=== PATIENT | male | born 2005 | race Caucasian/White ===

== ENCOUNTER 2024-05-20 13:29 | Emergency (ER) | payer BC, SELFPAY ==
[2024-05-20 13:31] VITALS: BP 114/57; PULSE 122; RESP 16; TEMP 37.2; O2SAT 100; BMI 17.0
--- NOTE | 2024-05-20 14:06 | RAD_ITS ---
STUDY: X-RAY CHEST REASON FOR EXAM: Male, 19 years old. Cough. Generalized illness. TECHNIQUE: Single AP portable view of the chest. COMPARISON: None. FINDINGS: Hyperinflation. The lungs are clear and expanded. There is no demonstrated pleural abnormality. Normal size heart. Normal mediastinum and olya. Normal visualized pulmonary arteries. Normal visualized aortic arch and descending thoracic aorta. Normal visualized thoracic spine. Normal visualized ribs, clavicles, and shoulders. There is no demonstrated abnormality of the visualized soft tissue structures of the upper abdomen. RAD/Chest 1 View (Portable) IMPRESSION: Hyperinflation. Electronically Signed: Giovani Christianson MD at 14:34 EST ,
--- NOTE | 2024-05-20 14:06 | EKG12_ITS ---
Test Reason : GENERAL Blood Pressure : */* mmHG Vent. Rate : 100 BPM Atrial Rate : 100 BPM P-R Int : 118 ms QRS Dur : 80 ms QT Int : 308 ms P-R-T Axes : 67 98 18 degrees QTcB Int : 397 ms Normal sinus rhythm Rightward axis Nonspecific T wave abnormality Abnormal ECG Confirmed by MAREN DELGADO, FRANDY ([id number]), vault keeper BIENVENIDO LACKEY ([id number]) on 05/22/2024 6:24:13 AM Referred By: Confirmed By: FRANDY ENGEL MD
[2024-05-20 15:22] LABS: Absolute Lymphocyte Count 0.62 X10^3/uL (0.83-4.51); Absolute Neutrophil Count 8.8 X10^3/uL (2.0-7.7); Basophil# 0.04 X10^3/uL; Basophil% 0.4 % (0-1); Eosinophil# 0.01 X10^3/uL; Eosinophils% 0.1 % (0-5); Hematocrit 46.6 % (40-54); Hemoglobin 15.7 g/dL (13.0-16.5); Lymphocyte # 0.62 X10^3/ul (0.83-4.51); Lymphocyte % 6.1 % (19-41); Mean Corp Hgb Conc 33.7 g/dL (32-36); Mean Corpuscular Hgb 29.4 pg (27.0-32.0); Mean Corpuscular Volume 87.3 fL (80-94); Mean Platelet Vol. 10.4 fl (6.2-12.0); Monocyte# 0.74 X10^3/uL; Monocyte% 7.2 % (0-10); NRBC Flagged by Analyzer 0 % (0-5); Neutrophil # 8.78 X10^3/uL (2.7-7.7); Neutrophil % 85.9 % (47-70); Platelet Count 228 K/mm3 (150-450); RBC Distribution Width CV 11.8 % (11.6-14.6); Red Blood Count 5.34 M/mm3 (4.6-6.2); White Blood Count 10.2 K/mm3 (4.4-11.0)
[2024-05-20 15:38] LABS: Anion Gap 5 (5-15); BUN 11 mg/dL (7-18); BUN/Creat Ratio 9.4 RATIO (10-20); Calcium,Total 9.3 mg/dL (8.5-10.1); Chloride 101 mmol/L (98-107); Creatinine, Serum 1.17 mg/dL (0.70-1.30); EST Glomerular Filtration Rate 84 mL/min (>60); Est Glom Filt Rate - Afr Amer 101 mL/min (>60); Estimated Creatinine Clearance 87.53 ml/min; Glucose 127 mg/dL (74-106); Potassium 4.6 mmol/L (3.5-5.1); Sodium Level 136 mmol/L (136-145)
[2024-05-20 15:46] LABS: International Normalized Ratio 1.1; Prothrombin Time (Protime)PT. 14.4 SECONDS (11.7-14.9)
[2024-05-20 15:47] LABS: Partial Thromboplast Time 33.2 Seconds (24.1-36.2)
--- NOTE | 2024-05-20 16:32 | EDS_ITS ---
HPI History of Present Illness Chief Complaint: General Illness Informant: patient Narrative Narrative: Presents to the ED for evaluation symptoms started 2 days ago. Mild headache congestion with postnasal drip causing cough. Waiting room he had an episode of vomiting water. No abdominal pain. No diarrhea. Subjective fevers. Intermittent lightheaded symptoms. No chest pains no dyspnea. Denies any past medical history. Denies sick contacts. He is vaccinated for both influenza and COVID. Had 5 COVID boosters. Had COVID in the past with no hospitalizations. No myalgias. Reports mild sore throat. PFSH PFSH Medical History no medical history Home Medications ?Medication ?Instructions ?Recorded ?Last Taken ?Type ondansetron 4 mg disintegrating 4 mg PO Q8H PRN PRN Nausea #10 tabs 05/20/24 Unknown Rx tablet Allergy/AdvReac Type Severity Reaction Status Date / Time peanut (peanuts) Allergy Mild Hives Verified 05/20/24 13:34 tree nut (tree nuts) Allergy Mild Hives Verified 05/20/24 13:34 Family History no significant family his Surgical History no surgical history Social History Smoking Status: Never smoker ROS ROS ED Constitutional Constitutional ED: Reports fever(s); Denies chills or sweats ENT ENT ED: Reports sore throat and other Details: Sinus congestion Cardiovascular Cardiovascular: Denies chest pain, leg edema, palpitations or racing heartbeat Respiratory/Chest Respiratory/Chest: Denies cough, dyspnea or dyspnea on exertion Gastrointestinal Gastrointestinal: Reports vomiting; Denies abdominal pain, diarrhea or nausea Genitourinary Genitourinary ED: Denies dysuria, hematuria or urinary frequency Musculoskeletal Musculoskeletal: Denies back pain, extremity pain or neck pain Integumentary Denies rash or wounds Neurologic Neurologic: Reports headache(s); Denies paresthesias or weakness EXAM Physical Exam Const Vital Signs: 05/20/24 13:31 05/20/24 16:41 05/20/24 16:41 Temperature 98.9 F 100.4 F H Temperature Source Temporal Temporal Pulse Rate 122 H 102 H Respiratory Rate 16 14 Respiratory Pattern Blood Pressure 114/57 L 126/64 H 126/64 H Blood Pressure Mean 76 84 84 Pulse Ox 100 99 Oxygen Delivery Method Room Air Room Air 05/20/24 16:50 05/20/24 16:51 05/20/24 17:54 Temperature 99.7 F H Temperature Source Temporal Pulse Rate 101 H Respiratory Rate 18 Respiratory Pattern Normal Blood Pressure 131/72 H Blood Pressure Mean 91 Pulse Ox 96 Oxygen Delivery Method Room Air Room Air 05/20/24 17:54 05/20/24 18:06 Temperature 99.7 F H Temperature Source Pulse Rate 101 H Respiratory Rate 18 Respiratory Pattern Blood Pressure 131/72 H 131/72 H Blood Pressure Mean 91 91 Pulse Ox 96 Oxygen Delivery Method Positive well nourished and well developed General Appearance ED: well developed and NAD HEENT Reports moist mucous membranes HEENT Narrative: No posterior pharyngeal erythema. TMs normal bilaterally. normocephalic and atraumatic Eyes General Eye ED: Yes normal appearance of both eyes Neck full ROM Neck Narrative: No meningismus Chest Wall Chest: Negative for tenderness Resp normal respiratory effort and normal air movement Effort and Inspection: symmetric chest movement; Negative for respiratory distress Cardio regular rate, regular rhythm and no murmurs Rate: other Other Details: Heart rate 90 during my exam. Peripheral Pulses: pulses 2+ throughout GI normal to inspection, nondistended, normoactive bowel sounds and non-tender Palpation: Negative for guarding or rebound tenderness present Extremity normal to inspection General Extremety ED: Negative for edema or tenderness General Extremity: Negative for edema Neuro oriented x3, CN's II-XII intact bilaterally and no sensory deficits noted Sensorium / Orientation: awake and alert Skin no rashes or lesions noted and no wounds MDM MDM MDM Narrative Medical decision making narrative: Interventions / MDM: Differential diagnosis: Viral syndrome, influenza A Diagnosis considered but do not suspect: No clinical meningitis, no clinical pne umonia concerns My EKG interpretation: Sinus rate of 100, no ST changes actually T wave version lead III nonspecific. QTc 397. Imaging independently reviewed and interpreted by myself: N/A External documents reviewed: N/A Test considered but not ordered:N/A ED course: Patient tachycardic in triage during my exam is 90. No meningismus no focal deficits. He had protocol labs obtained. White count normal at 10 hemoglobin 15.7 creatinine 1.17. EKG was done. Sinus rate of 100. IV fluids ordered Toradol. Viral swabs obtained. No current nausea. Will reevaluate. 1800: Influenza A positive. Negative COVID and RSV. Clinically feeling better on reevaluation. Discussed continue oral fluids using Tylenol or Motrin as needed. He has no comorbidities, discussed potential for Tamiflu with reduction of time of illness of not more than 8 hours overall. He agrees without core mobilities no starting on this medication. Continue symptomatic treatment. He has Teagan at home for which can take to help with congestion. Prescription for Zofran to use as needed since he had 1 emesis in triage. School note was written. All questions were answered. Re-evaluation: stable Disposition discussed with patient/family/significant other: Patient Case discussed with consulting clinician: N/A This note was generated with [employer] dictation software. It may contain incorrect words, spelling, and punctuation that were not noted in checking the note before signing. Lab Data Attestation: I reviewed the patient's lab results. Labs: Laboratory Results - last 24 hr 05/20/24 15:09 WBC 10.2 RBC 5.34 Hgb 15.7 Hct 46.6 MCV 87.3 MCH 29.4 MCHC 33.7 RDW Std Deviation 38.0 RDW Coeff of Ryann 11.8 Plt Count 228 MPV 10.4 Immature Gran % (Auto) 0.300 Neut % (Auto) 85.9 H Lymph % (Auto) 6.1 L Fajardo % (Auto) 7.2 Eos % (Auto) 0.1 Baso % (Auto) 0.4 Absolute Neuts (auto) 8.8 H Absolute Lymphs (auto) 0.62 L Nucleated RBC % 0 PT 14.4 INR 1.1 APTT 33.2 Sodium 136 Potassium 4.6 Chloride 101 Carbon Dioxide 30.0 Anion Gap 5 BUN 11 Creatinine 1.17 Estim Creat Clear Calc 87.53 Est GFR (MDRD) Af Amer 101 Est GFR (MDRD) Non-Af 84 BUN/Creatinine Ratio 9.4 L Glucose 127 H Calcium 9.3 Radiography Diagnostic Testing: Clinical Impression(s) from Imaging Studies Chest X-Ray 05/20/24 14:06 IMPRESSION: Hyperinflation. Electronically Signed: Giovani Christianson MD at 14:34 EST , Discharge Plan Triage Chief Complaint: General Illness ED Provider: Glenn Rust Dx/Rx/DC Orders Clinical Impression: Influenza A, Headache, Sinus congestion Instructions: ED Influenza (Adult) Prescriptions: New ondansetron 4 mg tablet,disintegrating 4 mg PO Q8H PRN PRN (Reason: Nausea) Qty: 10 0RF Stand Alone Forms: ED Work / School Excuse Primary Care Provider: Care Physician,No Primary Referrals: NOT,DEFINED [Non-Staff] - Activity Restrictions/Additional Instructions: Positive for influenza A. Negative COVID-negative RSV. EKG normal labs were normal. Continue oral fluid use Zofran as needed. Continue Ajn Motrin as needed. May use your Teagan for your sinus congestion. Print Language: Comoran Disposition Disposition: Home, Self Care
[2024-05-20 16:41] VITALS: BP 126/64; PULSE 102; RESP 14; TEMP 38; O2SAT 99
[2024-05-20] MEDS: Ketorolac 15 MG/ML Vial IV (16:43)
[2024-05-20] MEDS: 0.9% Normal Saline (500mL Bag) 500 ML 999 ML IV (16:56)
[2024-05-20 17:54] VITALS: BP 131/72; PULSE 101; RESP 18; TEMP 37.6; O2SAT 96
[2024-05-20 18:06] VITALS: BP 131/72; PULSE 101; RESP 18; TEMP 37.6; O2SAT 96
--- NOTE | 2024-05-20 18:35 | CM.ED ---
Social Work Reason for visit: No PCP Patient verified that he does not have a primary care physician at this time. [facility] provider directory given to patient. No further needs identified at this time. Tammy Marion, EDGER MACHINE SETTER, DRAPERY WORKER
== END 2024-05-20 18:14 | disposition home or self-care (01) ==
PROVIDERS: Emergency Provider Emergency Medicine; Visit Provider Emergency Medicine
DX: J10.1 Influenza due to other identified influenza virus with other respiratory manifestations (principal)
CPT/HCPCS: 71045; 80048; 85025; 85610; 85730; 87631; 93005; 96361; 96374; 99284; A4216